=== PATIENT | female | born 1955 | race Caucasian/White ===

== ENCOUNTER → 2017-08-21 | Outpatient (CLI) | payer OTHER | LOC: MC.RAD 08:37 | DX: Z12.31 Encounter for screening mammogram for malignant neoplasm of breast (principal) ==

== ENCOUNTER → 2019-11-26 | Outpatient (CLI) | payer BC | LOC: MC.RAD 13:17 | DX: N63.21 Unspecified lump in the left breast, upper outer quadrant (principal) ==

== ENCOUNTER → 2019-12-10 | Outpatient (CLI) | payer BC | LOC: MC.RAD 07:44 | DX: N63.20 Unspecified lump in the left breast, unspecified quadrant (principal); Z98.82 Breast implant status ==

== ENCOUNTER 2019-12-31 07:24 | Day surgery (SDC) | payer BC ==
[~2019-12-31] VITALS: Ht 157.5 cm; Wt 57.4 kg
[2019-12-31 08:09] VITALS: BP 141/75; PULSE 64; TEMP 98
[2019-12-31] MEDS ORDERED: ZESTORETIC 12.51 TA1 PO (08:14)
[2019-12-31] MEDS ORDERED: CALCIUM 600MG+D1 TAB PO (08:15)
[2019-12-31] MEDS ORDERED: TURMERIC500 MG PO (08:15)
[2019-12-31] MEDS ORDERED: NORCO 325 MG-51 TAB PO (14:31)
[2019-12-31 15:15] VITALS: BP 153/76; PULSE 56
--- NOTE | 2019-12-31 15:15 | NUR ---
Patient returns to room 2 per cart from PACU accompained by Maria De Jesus TORRES and is awake and alert. Dressing dry on the left breast. IV fluids infusing. Denies pain or nausea. Friend in the room. Siderails up x2 and call light in reach.
[2019-12-31 15:22] VITALS: TEMP 97.2
[2019-12-31 15:30] VITALS: BP 155/85; PULSE 52
--- NOTE | 2019-12-31 15:30 | NUR ---
Resting and denies discomfort. Room air sats 98%.
[2019-12-31 15:45] VITALS: BP 153/72; PULSE 54
--- NOTE | 2019-12-31 15:45 | NUR ---
Eating toast and talking with friend.
[2019-12-31 16:00] VITALS: BP 142/91; PULSE 58
--- NOTE | 2019-12-31 16:00 | NUR ---
Tolerated toast and Sprite. Resting and denies pain or nausea.
--- NOTE | 2019-12-31 16:05 | NUR ---
Patient assisted up to the bathroom and voids. Gait steady and denies pain or nausea.
--- NOTE | 2019-12-31 16:10 | NUR ---
Patient dresses self and INT discontinued.
--- NOTE | 2019-12-31 16:20 | NUR ---
Dismissal instructions given and voices understanding of these. Provided script for [place]. Instructed to take pain medications with food.
--- NOTE | 2019-12-31 16:29 | NUR ---
Patient dismissed to home driven by friend and taken to the front door by this RN and assisted into vehicle with dismissal instructions in hand.
== END 2019-12-31 16:29 | disposition home or self-care (01) ==
LOC: SDCO 07:24
DX: C50.412 Malignant neoplasm of upper-outer quadrant of left female breast (principal); Z17.0 Estrogen receptor positive status [ER+]; I10 Essential (primary) hypertension; F17.210 Nicotine dependence, cigarettes, uncomplicated; Z79.899 Other long term (current) drug therapy; Z80.7 Family history of other malignant neoplasms of lymphoid, hematopoietic and related tissues
CPT/HCPCS: A9541; J0690; J1100; J1885; J2250; J2405; J2795; J3010; J7120

== ENCOUNTER 2020-01-03 15:07 | Day surgery (SDC) | payer BC ==
[~2020-01-03] VITALS: Ht 157.5 cm; Wt 57.5 kg
[~2020-01-03 15:07] MED LIST: CALCIUM 600MG+D1 TAB PO; NORCO 325 MG-51 TAB PO; TURMERIC500 MG PO; ZESTORETIC 12.51 TA1 PO
[2020-01-10 10:14] VITALS: BP 139/80; PULSE 70; TEMP 97.6
[2020-01-10 12:06] VITALS: BP 119/67; PULSE 56; TEMP 98.2
--- NOTE | 2020-01-10 12:06 | NUR ---
Patient arrives back to [facility] drowsy, denies pain or nausea. Patient monitor applied, vitals stable. Patient resting comfortably on cart, with ice chips and call light at bedside. Patient denies food.
--- NOTE | 2020-01-10 12:10 | NUR ---
Dressing on left upper breast clean/dry/intact.
[2020-01-10 12:15] VITALS: BP 131/76; PULSE 56
[2020-01-10 12:30] VITALS: BP 136/67; PULSE 61
--- NOTE | 2020-01-10 12:30 | NUR ---
Patient tolerating ice chips well, denies nausea or pain. Dressing clean/dry/intact. Vitals stable.
[2020-01-10 12:45] VITALS: BP 143/76; PULSE 53
--- NOTE | 2020-01-10 12:45 | NUR ---
Patient reports she feels well and is ready to go home.
--- NOTE | 2020-01-10 13:10 | NUR ---
Dismissal instructions gone over with patient and patient's significant other. Both verbalize understanding and all questions answered.
--- NOTE | 2020-01-10 13:20 | NUR ---
Patient discharged to private vehicle at [facility] via wheelchair without any complications. Patient leaves thanking staff for services.
== END 2020-01-10 13:20 | disposition home or self-care (01) ==
LOC: SDCO
DX: C50.412 Malignant neoplasm of upper-outer quadrant of left female breast (principal); Z17.0 Estrogen receptor positive status [ER+]; I10 Essential (primary) hypertension; F17.210 Nicotine dependence, cigarettes, uncomplicated; F41.9 Anxiety disorder, unspecified
CPT/HCPCS: J0690; J2250; J2704; J3010; J7120

== ENCOUNTER → 2020-11-30 | Outpatient (CLI) | payer MEDICARE, BC | LOC: MC.RAD 09:11 | DX: Z12.31 Encounter for screening mammogram for malignant neoplasm of breast (principal); Z98.890 Other specified postprocedural states; Z98.82 Breast implant status; I10 Essential (primary) hypertension ==

== ENCOUNTER → 2021-01-13 | Outpatient (CLI) | payer MEDICARE, BC | LOC: COL.RAD 13:49 | DX: Z12.2 Encounter for screening for malignant neoplasm of respiratory organs (principal); F17.210 Nicotine dependence, cigarettes, uncomplicated ==

== ENCOUNTER → 2021-12-09 | Outpatient (CLI) | payer MEDICARE, BC | LOC: MC.RAD 13:04 | DX: Z12.31 Encounter for screening mammogram for malignant neoplasm of breast (principal); Z98.890 Other specified postprocedural states; Z98.82 Breast implant status ==

== ENCOUNTER → 2023-12-04 | Outpatient (CLI) | payer MEDICARE, BC | LOC: COL.RAD 09:35 | DX: Z12.2 Encounter for screening for malignant neoplasm of respiratory organs (principal); Z87.891 Personal history of nicotine dependence ==

== ENCOUNTER → 2023-12-26 | Outpatient (CLI) | payer MEDICARE, BC | LOC: MC.RAD 08:56 | DX: Z12.31 Encounter for screening mammogram for malignant neoplasm of breast (principal) ==